=== PATIENT | male | born 1985 | race Caucasian/White ===

== ENCOUNTER 2019-02-25 18:43 | Emergency (ER) | payer MEDICAID, SELFPAY ==
[2019-02-25 18:43] VITALS: BP 149/73; PULSE 125; RESP 22; TEMP 36.8; O2SAT 96; BMI 28.1
--- NOTE | 2019-02-25 19:14 | CT_ITS ---
HISTORY: TTraumaCT - Brain withoutTALL FALL FROM A TREE EXAM/TECHNIQUE: CT Head or Brain W/O Contrast: Multiplanar reformats provided. COMPARISON: None. FINDINGS: # of images incl. paperwork: 252 No evidence of intracranial hemorrhage, mass, infarct or hydrocephalus. No skull fracture. CT/Brain/Head without Contrast IMPRESSION: No evidence of intracranial injury or skull fracture. Individualized dose optimization techniques were used for this CT. at 2127 Reported and signed by: Ramírez Ureña MD Electronically Signed: Ramírez Ureña, at 21:25 EDT Tel , Service support ,
--- NOTE | 2019-02-25 19:14 | CT_ITS ---
HISTORY: Pain after falling from a tree. EXAMINATION: CT Abdomen And Pelvis W/ Contrast TECHNIQUE: Helically acquired images were obtained of the abdomen and pelvis following IV contrast. A radiation dose optimization technique was used for this scan. IV Contrast dosage and agent: 100ML Isovue 300 Oral contrast: None. COMPARISON: None FINDINGS: LOWER CHEST: Lung bases are clear. No cardiomegaly or pericardial effusion observed. LIVER: Homogeneous. No focal mass. GALLBLADDER AND BILIARY TREE: No calcified gallstones. There is no gallbladder distension or wall edema. No intra- or extrahepatic biliary ductal dilation. KIDNEYS AND URETERS: Normal renal size and position. There is no hydronephrosis. ADRENAL GLANDS: Non-enlarged. SPLEEN: Normal size without focal cystic or solid mass. PANCREAS: No focal cystic or solid mass. BOWEL: No evidence of acute appendicitis. No stomach or bowel distension. No focal inflammatory change observed. LYMPH NODES: No enlarged mesenteric or retroperitoneal lymph nodes. PERITONEUM: No ascites or free air. No other fluid collection. VESSELS: Aorta is non-dilated. URINARY BLADDER: Unremarkable. REPRODUCTIVE ORGANS: No pelvic masses. ABDOMINAL WALL: No discrete abdominal or pelvic wall hernia observed. BONES: No fractures. CT/Abdomen/Pelvis W IV Cont ONLY IMPRESSION: Negative CT of the abdomen and pelvis with contrast. No evidence of acute traumatic injury to the abdomen or pelvis. Individualized dose optimization techniques were used for this CT. at 5794 Reported and signed by: Ramírez Ureña MD Electronically Signed: Ramírez Ureña, at 21:53 EDT Tel , Service support ,
--- NOTE | 2019-02-25 19:14 | EKG12_ITS ---
Test Reason : Blood Pressure : / mmHG Vent. Rate : 093 BPM Atrial Rate : 093 BPM P-R Int : 148 ms QRS Dur : 084 ms QT Int : 344 ms P-R-T Axes : 073 071 058 degrees QTc Int : 427 ms Normal sinus rhythm Normal ECG Confirmed by YENNI GARCIA, LEEANNA ([id number]), offline editor JEANNINE ADAMS ([id number]) on 02/28/2019 10:55:37 AM Referred By: HIGINIO Confirmed By:LEEANNA HYMAN MD
--- NOTE | 2019-02-25 19:14 | CT_ITS ---
HISTORY: Pain after falling from tree. EXAMINATION: CT Chest W/ Contrast TECHNIQUE: Helically acquired images were obtained of the chest following IV contrast. A radiation dose optimization technique was used for this scan. IV Contrast dosage and agent: 100ML Isovue 300 COMPARISON: No relevant priors. FINDINGS: UPPER ABDOMEN: No acute pathology. HEART AND PERICARDIUM: Heart size is normal. There is no pericardial effusion. VESSELS: Thoracic aorta is not dilated. There is no aortic dissection. There is no central pulmonary embolism although this study was not performed with the pulmonary embolism protocol. MEDIASTINUM AND AVANI: There is no mediastinal or hilar adenopathy. Esophagus is unremarkable. There is no hiatal hernia. OTHER SOFT TISSUES: Included thyroid gland is unremarkable. There is no axillary, supraclavicular or lower cervical adenopathy. LUNGS AND LARGE AIRWAYS: Clear. No pneumothorax. PLEURA: Unremarkable. No pleural effusion or thickening. BONES: Disruption of the manubriosternal joint, with 8 mm anterior displacement of the sternal body in relation to the manubrium, with small fracture fragments arising from the sternal and manubrial cortex adjacent to this disruption. This also involves the insertion of the second costal cartilage insertion onto the sternum bilaterally. Small amount of adjacent retro-and presternal hematoma, 6 mm in greatest thickness. CT/Chest WITH Contrast IMPRESSION: Sternal injury with disruption of the manubriosternal joint, with small adjacent fracture fragments, a small amount of retro-and presternal hemorrhage, and also involvement of the insertion of the second costal cartilage onto the sternum bilaterally. No other apparent injury to the chest. No evidence of injury to the heart or great vessels. Individualized dose optimization techniques were used for this CT. at 2207 Reported and signed by: Ramírez Ureña MD Electronically Signed: Ramírez Ureña, at 22:06 EDT Tel , Service support ,
--- NOTE | 2019-02-25 19:15 | CT_ITS ---
STUDY: CT CERVICAL SPINE WITHOUT CONTRAST REASON FOR EXAM: Male, 34 years old. Trauma RADIATION DOSAGE (If Supplied By Facility): CTDIvol = ( 15.31 ) mGy, DLP = ( 328.61 ) mGycm TECHNIQUE: High resolution transaxial imaging was performed without contrast material. Sagittal and coronal images were reconstructed. Individualized dose optimization techniques were used for this CT. COMPARISON: None available. FINDINGS: There is no evidence of fracture or dislocation in the cervical spine. The dens is intact. Alignment is normal. The vertebral body heights and disc spaces are well-maintained. There are no significant degenerative changes. There are emphysematous changes noted in the lung apices. CT/Spine Cervical without Contras IMPRESSION: No fracture or dislocation in the cervical spine. No significant degenerative changes. Emphysema. Electronically Signed: Edward Ervin, at 21:18 EDT Tel , Service support ,
--- NOTE | 2019-02-25 19:15 | RAD_ITS ---
HISTORY: pt fell out of a tree, lac to lateral ankle EXAM/TECHNIQUE: XR Ankle Min 3 Views: Left. COMPARISON: None. FINDINGS: # of images incl. paperwork: 3 Laceration and soft tissue swelling adjacent to the lateral malleolus. Irregularity of the medial process of the talus. No other evidence of fracture. Alignment anatomic. Normal bony mineralization. RAD/Ankle min 3 Views IMPRESSION: Suspect nondisplaced fracture of the medial process of the talus. CT would confirm if clinically necessary. Laceration and soft tissue swelling adjacent to the lateral malleolus. at 2130 Reported and signed by: Ramírez Ureña MD Electronically Signed: Ramírez Ureña, at 21:29 EDT Tel , Service support ,
--- NOTE | 2019-02-25 19:29 | ED.DCSUM_ITS ---
- ER Visit Summary Date of Service: 02/25/19 Chief Complaint: Fall History of Present Illness: The patient is a 34 M presents to the emergency department after a fall. The patient states he was climbing a tree to try and get a can out. He states he thinks he was approximately 2 stories up. He lost his balance and fell from the tree. States he landed on his left ankle and then struck his chest. He hit his head but did not lose consciousness. He states he did try to walk on the ankle but had pain. He also noticed that he was bleeding. He states the bulk of his pain is mostly in his chest area. He is mildly short of breath. He denies any headache or visual change. The patient is on no daily medications. Tetanus is up-to-date. Physical Examination: Vital signs reviewed General: Well-nourished, well-developed Head: Normocephalic, atraumatic Eyes: Pupils equal and reactive, extraocular muscles intact Neck, supple, no lymphadenopathy Heart: Regular rate and rhythm Respiratory: No distress, clear bilaterally, diffuse anterior sternal tenderness to palpation without crepitus Abdomen: Soft, nontender, nondistended, no peritoneal signs Back: Nontender Extremities: 4 cm laceration over the lateral malleolus. No visible bone. No tenderness in the foot. Compartments soft. Pulses normal. Skin: Normal color no rash Neuro: Alert and oriented, no focal or lateralizing deficits Test Results: [] Emergency Department Course and Treatment: [The patient was awake and alert. He is a GCS of 15. He does have tenderness over the anterior sternum without crepitus. Metabolic workup was pursued. He was given analgesics with improvement of his pain. He does have a leukocytosis which I feel is likely reactive. Head CT and CT of the C-spine were negative. CT of abdomen pelvis was negative. CT of the chest shows a displaced sternal fracture with hematoma. The x-rays of the ankle show a nondisplaced talar fracture of the medial aspect. It does not involve the lateral aspect where his laceration is. His laceration was anesthetized and irrigated. There is evidence of disruption of the muscle belly. I do not see any visible tendon, but I do have concern for this. Given the patient's mechanism, evidence of sternal fracture, and ligamentous injury of his ankle I do feel that he is going to require higher level of care. The patient was discussed with Dr. Charles at [facility] and accepted. He will be transferred. Treatment Plan: [] Disposition: Transfer Impression: 1. Fall from two-story height 2. Sternal fracture with displacement 3. Left talus fracture 4. Left ankle laceration with repair 5. Splint by ED physician This note was generated with [employer] dictation software. It may contain incorrect words, spelling, and punctuation that were not noted in review of the chart prior to signing ED Disposition - Plan for ED Patient: Referrals: Care Physician,No Primary [Primary Care Provider] -
[2019-02-25 20:14] LABS: Absolute Lymphocyte Count 1.64 X10^3/ul (0.83-4.51); Absolute Neutrophil Count 19.2 X10^3/uL (2.0-7.7); Basophil# 0.01 X10^3/uL; Eosinophil# 0.01 X10^3/uL; Hematocrit 43.3 % (40-54); Lymphocyte # 1.64 X10^3/ul (4.0); Lymphocyte % 7.7 % (19-41); Mean Corp Hgb Conc 34.6 g/gl (32-36); Mean Corpuscular Hgb 30.9 pg (27.0-32.0); Mean Corpuscular Volume 89.1 fL (80-94); Mean Platelet Vol. 10.7 fl (6.2-12.0); Monocyte# 0.45 X10^3/uL; Monocyte% 2.1 % (0-10); Neutrophil % 89.6 % (47-70); Platelet Count 241 K/mm3 (150-450); RBC Distribution Width CV 13.2 % (11.6-14.6); RBC Distribution Width SD 42.8 fl (35.1-43.9); Red Blood Count 4.86 M/mm3 (4.6-6.2); White Blood Count 21.4 K/mm3 (4.4-11.0)
[2019-02-25 20:16] LABS: POSITIVE COUNT NO; POSITIVE DIFFERENTIAL NO; POSITIVE MORPHOLOGY NO
[2019-02-25] MEDS: 0.9% Normal Saline 1,000 ML 1000 ML IV (20:23)
[2019-02-25] MEDS: Ondansetron 4 MG/2 ML Vial IV (20:23)
[2019-02-25] MEDS: Cefazolin 1 GM/50 ML BAG IV (20:23)
[2019-02-25] MEDS: Morphine 4 MG/ML Syringe IV ×2 (20:24→21:17)
[2019-02-25 20:25] LABS: Anion Gap 7 (5-15); BUN 10 mg/dL (7-18); BUN/Creat Ratio 8.6 RATIO (10-20); Calcium,Total 8.9 mg/dL (8.5-10.1); Chloride 108 mmol/L (98-107); Creatinine, Serum 1.16 mg/dL (0.70-1.30); EST Glomerular Filtration Rate 77 mL/min (>60); Est Glom Filt Rate - Afr Amer 93 mL/min (>60); Estimated Creatinine Clearance 83.89 ml/min; Glucose 145 mg/dL (74-106); Potassium 3.6 mmol/L (3.5-5.1); Sodium Level 140 mmol/L (136-145)
--- NOTE | 2019-02-25 21:05 | ED.RN ---
PT RETURNS FROM CT COMPLAINING OF CHEST PAIN, DR. FRY MADE AWARE, ADDITIONAL MEDICATION ORDERS OBTAINED.
[2019-02-25 21:20] VITALS: BP 147/80; PULSE 86; RESP 19; O2SAT 96
--- NOTE | 2019-02-25 22:09 | RAD_ITS ---
STUDY: X-RAY - LEFT FOOT CLINICAL: Male, 34 years old. Foot pain status post fall TECHNIQUE: 3 view(s) of the foot. COMPARISON: None. FINDINGS: Normal calcaneus, and tarsal bones. There is an irregular appearance of the medial aspect of the talus which may represent partially visualized fracture injury. Normal visualized subtalar, talonavicular, calcaneocuboid, tarsal and tarsometatarsal articulations. Normal metatarsi. Normal metatarsophalangeal joint of the great toe. Normal tibial and fibular sesamoid bones. Normal interphalangeal joint of the great toe. Normal phalanges of the great toe. Normal second through fifth metatarsophalangeal joints. Normal interphalangeal joints and phalanges of the lesser toes. Is visualized soft tissue edema about the ankle. RAD/Foot min 3 Views IMPRESSION: Question possible medial talus fracture. There is soft tissue edema about the ankle. Electronically Signed: Patrica Mobley MD at 22:40 EDT Tel , Service support ,
[2019-02-25] MEDS: Bupivacaine Mpf 0.5% 30 ML VIAL INFILT (22:14)
[2019-02-25 23:45] VITALS: BP 146/82; PULSE 86; RESP 16; O2SAT 98
== END 2019-02-25 23:46 | disposition short-term general hospital (02) ==
PROVIDERS: Emergency Provider Emergency Medicine
DX: S27.892A Contusion of other specified intrathoracic organs, initial encounter (principal); S22.23XA Sternal manubrial dissociation, initial encounter for closed fracture; S92.192A Other fracture of left talus, initial encounter for closed fracture; S91.012A Laceration without foreign body, left ankle, initial encounter; W14.XXXA Fall from tree, initial encounter; Y93.89 Activity, other specified; Y92.9 Unspecified place or not applicable
CPT/HCPCS: 12002; 29515; 70450; 71260; 72125; 73610; 73630; 74177; 80048; 85025; 93005; 96361; 96374; 96375; 96376; 99285; J7030; Q9967; A4216; J2405